=== PATIENT | male | born 1990 | race Asian ===

== ENCOUNTER 2018-07-06 18:21 | Inpatient (IN) | payer BC ==
[~2018-07-06] VITALS: Ht 172.7 cm; Wt 82.1 kg
[2018-07-06] MEDS ORDERED: PLEASE ENTER ALLERGIES MC SCH (19:00)
[2018-07-06] MEDS ORDERED: ONDANSETRON 2MG/ML, 2ML IVPush ONE (19:00)
[2018-07-06] MEDS ORDERED: MORPHINE SULFATE 4 MG/ML, 1ML IVPush PRN ×2 (19:00→22:30)
[2018-07-06] MEDS ORDERED: ONDANSETRON 2MG/ML, 2ML ONE (19:10)
[2018-07-06] MEDS ORDERED: MORPHINE SULFATE 4 MG/ML, 1ML ONE (19:11)
[2018-07-06 19:14] LABS: BASOPHILS # (AUTO) 0.01 x10^3/uL (0-0.1); BASOPHILS % (AUTO) 0 % (0-1); EOSINOPHILS % (AUTO) 0 % (1-7); LYMPHOCYTES # (AUTO) 0.45 x10^3/uL (1-3.4); LYMPHOCYTES % (AUTO) 3 % (22-44); MD NO; MEAN CORPUSCULAR HGB CONC 34.7 g/dL (33.2-36.2); MEAN CORPUSCULAR VOLUME 86.4 fL (81-97); MEAN PLATELET VOLUME 8.2 fL (7.4-10.4); MONOCYTES # (AUTO) 0.54 x10^3/uL (0.2-0.8); MONOCYTES % (AUTO) 3 % (2-9); NEUTROPHILS # (AUTO) 15.58 x10^3/uL (1.8-6.8); NEUTROPHILS % (AUTO) 94 % (42-75); PLATELET COUNT 207 x10^3/uL (130-400); RED CELL DISTRIBUTION WIDTH 12.6 % (9.4-14.8)
--- NOTE | 2018-07-06 19:20 | NUR ---
PT VOMITING BROWN LIQUID. FAMILY ASSISTING PT AT BS. RV'WD POC WITH HIM, COMFORT MEASURES PROVIDED.
[2018-07-06 19:24] LABS: ALANINE AMINOTRANSFERASE 140 U/L (12-78); ALBUMIN 4.8 g/dL (3.4-5.0); ANION GAP 9 mmol/L (5-15); CALCIUM 9.6 mg/dL (8.5-10.1); CHLORIDE 105 mmol/L (98-107); CREATININE 1.36 mg/dL (0.7-1.3)
[2018-07-06 19:26] LABS: ALKALINE PHOSPHATASE 85 U/L (45-117); BILIRUBIN,TOTAL 1.9 mg/dL (0.2-1.0); TOTAL PROTEIN 8.1 g/dL (6.4-8.2)
--- NOTE | 2018-07-06 19:29 | NUR ---
IV INSERTED, PT MEDICATED PER ORDERS. RV'WD POC WITH HIM. NOTIFIED PT ABOUT NEED FOR URINE SAMPLE. Addendum: 07/06/18 at 2 by HBENSON SPO2 90-91% ON RA AFTER MORPHINE. PT PLACED ON 1L O2 NC.
--- NOTE | 2018-07-06 19:52 | NUR ---
PT MUCH MORE COMFORTABLE, RESTING WITH EYES CLOSED AFTER PAIN MEDS. AWAKENS EASILY. INSTRUCTED ON CLEAN CATCH URINE SAMPLE.
--- NOTE | 2018-07-06 19:54 | NUR ---
PT AMBULATED TO BR WITHOUT DIFFICULTY.
--- NOTE | 2018-07-06 20:20 | NUR ---
PT VOMITING AGAIN. FAMILY ASSISTING PT. WILL NOTIFY ERP.
--- NOTE | 2018-07-06 20:28 | NUR ---
LUNCH RN: PT RESTING ON [facility] RA O2 SATS 88%, PT HAS TAKEN O2 OFF. THIS RN TRIED TO REPLACE IT HOWEVER THE PT REQUESTS THAT IT "BE TURNED DOWN BECAUSE IT'S TOO HIGH". CURRENTLY AT 2LPM. SATS INCREASED TO 95%. FAMILY AT BEDSIDE.
--- NOTE | 2018-07-06 20:32 | NUR ---
LUNCH RN: PT TO
[2018-07-06 20:34] LABS: MICROSCOPIC INDICATED
[2018-07-06 20:51] LABS: CULTURE INDICATED? NO
--- NOTE | 2018-07-06 20:55 | NUR ---
ERP AT BS FOR RE-EVAL.
[2018-07-06] MEDS ORDERED: SODIUM CHLORIDE 0.9% 1,000ML IVBOLUS ONE ×2 (21:00→21:30)
[2018-07-06] MEDS ORDERED: METOCLOPRAMIDE 5 MG/ML, 2ML IVPush ONE (21:00)
[2018-07-06] MEDS ORDERED: METOCLOPRAMIDE 5 MG/ML, 2ML ONE (21:05)
--- NOTE | 2018-07-06 21:27 | NUR ---
PT MEDICATED WITH REGLAN AND IV BOLUS INFUSING. STILL HAVING SOME NAUSEA. TO CT VIA GURNEY AT THIS TIME.
[2018-07-06] MEDS ORDERED: OMNIPAQUE 350 MG/ML, 100ML BOTTLE ONE (21:41)
--- NOTE | 2018-07-06 22:09 | NUR ---
ERP WAS IN FOR RECHECK. PT AND FAMILY UNDERSTAND PLAN FOR ADMISSION. PT RESTING AT THIS TIME, AWAKENS EASILY.
--- NOTE | 2018-07-06 22:23 | NUR ---
HOSPITALIST AT BS. PT A&OX4, ANSWERING QUESTIONS.
[2018-07-06] MEDS ORDERED: ONDANSETRON 2MG/ML, 2ML IVPush PRN ×2 (22:30→23:00)
[2018-07-06] MEDS ORDERED: SODIUM CHLORIDE 0.9% 1,000 ML IV SCH (22:38)
[2018-07-06] MEDS ORDERED: hydrALAzine 20 MG/ML, 1ML IVPush PRN (23:00)
[2018-07-06] MEDS ORDERED: ENOXAPARIN 40 MG/0.4 ML SQ SCH (23:00)
[2018-07-06 23:06] VITALS: BP 139/83
[2018-07-07] MEDS: HEPARIN 5,000 UNITS/ML, 1ML SQ SCH ×2 (00:04→11:21)
[2018-07-07] MEDS: CEFTRIAXONE PMX 2GM/50ML 50 ML IV SCH (00:04)
[2018-07-07 00:53] VITALS: BP 126/71
[2018-07-07] MEDS: METRONIDAZOLE PMX 500MG/100ML 100 ML IV SCH ×3 (02:14→16:59)
[2018-07-07 05:07] LABS: BASOPHILS % (AUTO) 0 % (0-1); EOSINOPHILS % (AUTO) 0 % (1-7); LYMPHOCYTES % (AUTO) 4 % (22-44); MD NO; MEAN CORPUSCULAR HEMOGLOBIN 30.2 pg (27.5-34.5); MEAN CORPUSCULAR HGB CONC 34.7 g/dL (33.2-36.2); MEAN CORPUSCULAR VOLUME 87.2 fL (81-97); MEAN PLATELET VOLUME 8.4 fL (7.4-10.4); MONOCYTES # (AUTO) 1.06 x10^3/uL (0.2-0.8); MONOCYTES % (AUTO) 6 % (2-9); NEUTROPHILS # (AUTO) 14.91 x10^3/uL (1.8-6.8); NEUTROPHILS % (AUTO) 89 % (42-75); PLATELET COUNT 196 x10^3/uL (130-400); RED BLOOD COUNT 6.11 x10^6/uL (4.38-5.82); RED CELL DISTRIBUTION WIDTH 12.6 % (9.4-14.8)
[2018-07-07 05:19] LABS: CHLORIDE 109 mmol/L (98-107)
[2018-07-07 05:32] LABS: ALANINE AMINOTRANSFERASE 93 U/L (12-78); ALBUMIN 3.7 g/dL (3.4-5.0); ALKALINE PHOSPHATASE 66 U/L (45-117); ANION GAP 7 mmol/L (5-15); BILIRUBIN,TOTAL 1.3 mg/dL (0.2-1.0); CREATININE 0.83 mg/dL (0.7-1.3); TOTAL PROTEIN 6.7 g/dL (6.4-8.2)
[2018-07-07 07:25] VITALS: BP 118/75
[2018-07-07 08:06] LABS: INTERNATIONAL NORMALIZED RATIO 1.03 (0.93-1.1); PROTHROMBIN TIME 10.8 Seconds (9.6-11.5)
[2018-07-07] MEDS: POTASSIUM CHLORIDE 20 MEQ, MAGNESIUM SULFATE 1 GM, THIAMINE 200 MG, FOLIC ACID 1 MG, MV... IV SCH (08:53)
[2018-07-07] MEDS: morphine SULFATE 10 MG/ML, 1ML IVPush PRN ×2 (11:05→21:36)
[2018-07-07 14:00] VITALS: BP 116/76
[2018-07-07] MEDS ORDERED: OMNIPAQUE 350 MG/ML, 75ML BOTTLE ONE (14:02)
[2018-07-07 18:45] VITALS: BP 129/78
[2018-07-07] MEDS: SODIUM CHLORIDE 0.9% 1,000 ML IV SCH (22:38)
[2018-07-08] MEDS: CEFTRIAXONE PMX 2GM/50ML 50 ML IV SCH ×2 (00:04→23:52)
[2018-07-08 00:57] VITALS: BP 110/61
[2018-07-08] MEDS: METRONIDAZOLE PMX 500MG/100ML 100 ML IV SCH ×3 (01:04→21:51)
[2018-07-08] MEDS: SODIUM CHLORIDE 0.9% 1,000 ML IV SCH ×4 (04:21→22:00)
[2018-07-08] MEDS: HEPARIN 5,000 UNITS/ML, 1ML SQ SCH ×2 (05:29→17:30)
[2018-07-08 05:55] LABS: MEAN CORPUSCULAR HEMOGLOBIN 30.3 pg (27.5-34.5); MEAN CORPUSCULAR HGB CONC 34.7 g/dL (33.2-36.2); MEAN CORPUSCULAR VOLUME 87.5 fL (81-97); MEAN PLATELET VOLUME 8.6 fL (7.4-10.4); PLATELET COUNT 162 x10^3/uL (130-400); RED CELL DISTRIBUTION WIDTH 13.1 % (9.4-14.8)
[2018-07-08 05:56] LABS: CHLORIDE 110 mmol/L (98-107)
[2018-07-08 06:03] LABS: ALANINE AMINOTRANSFERASE 51 U/L (12-78); ALKALINE PHOSPHATASE 58 U/L (45-117); ANION GAP 6 mmol/L (5-15); BILIRUBIN,TOTAL 1.3 mg/dL (0.2-1.0); CREATININE 1.05 mg/dL (0.7-1.3); TOTAL PROTEIN 6.3 g/dL (6.4-8.2)
[2018-07-08 07:03] VITALS: BP 124/69
[2018-07-08 07:24] LABS: MD YES
[2018-07-08 07:26] LABS: BANDS%(MANUAL) 6 % (0-7); LYMPHS% (MANUAL) 3 % (22-44); MONOS% (MANUAL) 6 % (2-9); SEGS% (MANUAL) 85 % (42-75)
[2018-07-08 07:27] LABS: <PLATELET ESTIMATE> ADEQUATE; <PLT MORPHOLOGY> NORMAL PLT MORPH; <RBC MORPHOLOGY> NORMAL
[2018-07-08] MEDS: POTASSIUM CHLORIDE 20 MEQ, MAGNESIUM SULFATE 1 GM, THIAMINE 200 MG, FOLIC ACID 1 MG, MV... IV SCH (08:06)
[2018-07-08] MEDS ORDERED: THIAMINE 100MG TABLET PO SCH (11:00)
[2018-07-08] MEDS ORDERED: FOLIC ACID 1 MG TABLET PO SCH (11:00)
[2018-07-08 14:15] VITALS: BP 132/77
[2018-07-08] MEDS ORDERED: BUPIVACAINE/PF-EPI 0.5% 1:200K ONE (15:09)
[2018-07-08] MEDS ORDERED: OMNIPAQUE 350 MG/ML, 50 ML BOTTLE ONE (15:45)
[2018-07-08] MEDS ORDERED: BUPIVACAINE/EPI 0.5% 1:200K ONE (17:01)
[2018-07-08] MEDS ORDERED: MIDAZOLAM 1 MG/ML, 2ML ONE (17:13)
[2018-07-08] MEDS ORDERED: CEFOTETAN 2 GM ONE (17:37)
[2018-07-08] MEDS ORDERED: BUPIVACAINE/PF-EPI 0.5% 1:200K INFIL ONE (18:05)
[2018-07-08] MEDS ORDERED: FENTANYL PF 250 MCG/5ML ONE (18:06)
[2018-07-08] MEDS ORDERED: DEXAMETHASONE 4 MG/ML, 1ML ONE (18:11)
[2018-07-08] MEDS ORDERED: NEOSTIGMINE 1 MG/ML, 10ML ONE (18:11)
[2018-07-08] MEDS ORDERED: CEFAZOLIN 1,000 MG ONE (18:11)
[2018-07-08] MEDS ORDERED: PROPOFOL 10 MG/ML, 20ML ONE (18:11)
[2018-07-08] MEDS ORDERED: SUCCINYLCHOLINE 20 MG/ML, 10ML ONE (18:11)
[2018-07-08] MEDS ORDERED: ROCURONIUM 10MG/ML,5ML ONE (18:11)
[2018-07-08] MEDS ORDERED: GLYCOPYRROLATE 0.2MG/1ML, 5ML ONE (18:11)
[2018-07-08] MEDS ORDERED: ONDANSETRON 2MG/ML, 2ML ONE (18:11)
[2018-07-08] MEDS ORDERED: OXYcodone 5 MG/5 ML ORAL.SOL UDC PO PRN (18:30)
[2018-07-08] MEDS ORDERED: MEPERIDINE/PF 25MG/0.5ML IVPush PRN (18:30)
[2018-07-08] MEDS ORDERED: hydrALAzine 20 MG/ML, 1ML IV PRN (18:30)
[2018-07-08] MEDS ORDERED: DIAZEPAM 5 MG/ML, 2ML IVPush PRN (18:30)
[2018-07-08] MEDS ORDERED: HYDROmorphone 2 MG/ML, 1ML IVPush PRN (18:30)
[2018-07-08] MEDS ORDERED: ACETAMINOPHEN 325 MG TABLET PO PRN (18:30)
[2018-07-08] MEDS ORDERED: LABETALOL 5MG/ML, 20ML IV PRN (18:30)
[2018-07-08] MEDS ORDERED: ALBUTEROL SULFATE 2.5 MG/3 ML NPPB PRN (18:30)
[2018-07-08] MEDS ORDERED: KETOROLAC 30 MG/1 ML IV PRN (18:30)
[2018-07-08] MEDS ORDERED: PROMETHAZINE 25 MG/ML, 1ML IV PRN (18:30)
[2018-07-08] MEDS ORDERED: FENTANYL PF 100 MCG/2ML IV PRN (18:30)
[2018-07-08] MEDS ORDERED: OXYcodone 5 MG/5 ML ORAL.SOL UDC ONE (18:57)
[2018-07-08] MEDS ORDERED: KETOROLAC 30 MG/1 ML ONE (18:57)
[2018-07-08] MEDS ORDERED: MORPHINE SULFATE 4 MG/ML, 1ML IV PRN (20:00)
[2018-07-08] MEDS ORDERED: ONDANSETRON 2MG/ML, 2ML IV PRN (20:00)
[2018-07-08 21:23] VITALS: BP 119/70
[2018-07-09 02:24] VITALS: BP 110/74
[2018-07-09] MEDS: SODIUM CHLORIDE 0.9% 1,000 ML IV SCH (03:43)
[2018-07-09 05:50] LABS: BASOPHILS # (AUTO) 0.03 x10^3/uL (0-0.1); BASOPHILS % (AUTO) 0 % (0-1); EOSINOPHILS % (AUTO) 0 % (1-7); LYMPHOCYTES # (AUTO) 0.83 x10^3/uL (1-3.4); LYMPHOCYTES % (AUTO) 7 % (22-44); MD NO; MEAN CORPUSCULAR HEMOGLOBIN 30.3 pg (27.5-34.5); MEAN CORPUSCULAR HGB CONC 34.7 g/dL (33.2-36.2); MEAN CORPUSCULAR VOLUME 87.2 fL (81-97); MEAN PLATELET VOLUME 8.1 fL (7.4-10.4); MONOCYTES % (AUTO) 9 % (2-9); NEUTROPHILS % (AUTO) 85 % (42-75); PLATELET COUNT 157 x10^3/uL (130-400); RED BLOOD COUNT 4.98 x10^6/uL (4.38-5.82)
[2018-07-09] MEDS: METRONIDAZOLE PMX 500MG/100ML 100 ML IV SCH (05:57)
[2018-07-09 06:02] LABS: ALBUMIN 2.6 g/dL (3.4-5.0); ANION GAP 3 mmol/L (5-15); CALCIUM 7.3 mg/dL (8.5-10.1); CHLORIDE 109 mmol/L (98-107)
[2018-07-09] MEDS: HEPARIN 5,000 UNITS/ML, 1ML SQ SCH ×2 (06:02→18:00)
[2018-07-09] MEDS: OXYcodone/APAP 5/325MG TABLET PO PRN ×3 (06:05→20:21)
[2018-07-09 06:06] LABS: ALANINE AMINOTRANSFERASE 61 U/L (12-78); ALKALINE PHOSPHATASE 51 U/L (45-117); TOTAL PROTEIN 5.7 g/dL (6.4-8.2)
[2018-07-09 06:47] VITALS: BP 114/69
[2018-07-09] MEDS: POTASSIUM CHLORIDE 20 MEQ, MAGNESIUM SULFATE 1 GM, THIAMINE 200 MG, FOLIC ACID 1 MG, MV... IV SCH (09:00)
[2018-07-09] MEDS: FOLIC ACID 1 MG TABLET PO SCH (11:53)
[2018-07-09] MEDS: THIAMINE 100MG TABLET PO SCH (11:53)
[2018-07-09 14:09] VITALS: BP 114/65
[2018-07-09 20:01] VITALS: BP 120/75
[2018-07-10 03:00] VITALS: BP 121/72
[2018-07-10] MEDS: HEPARIN 5,000 UNITS/ML, 1ML SQ SCH ×2 (05:53→17:33)
[2018-07-10 06:38] LABS: MEAN CORPUSCULAR HEMOGLOBIN 30.2 pg (27.5-34.5); MEAN CORPUSCULAR HGB CONC 34.5 g/dL (33.2-36.2); MEAN CORPUSCULAR VOLUME 87.5 fL (81-97); MEAN PLATELET VOLUME 8.4 fL (7.4-10.4); PLATELET COUNT 183 x10^3/uL (130-400); RED BLOOD COUNT 4.96 x10^6/uL (4.38-5.82); RED CELL DISTRIBUTION WIDTH 12.4 % (9.4-14.8)
[2018-07-10 06:50] LABS: ALBUMIN 2.7 g/dL (3.4-5.0); ANION GAP 6 mmol/L (5-15); CALCIUM 7.6 mg/dL (8.5-10.1); CHLORIDE 104 mmol/L (98-107)
[2018-07-10 06:54] LABS: ALANINE AMINOTRANSFERASE 52 U/L (12-78); ALKALINE PHOSPHATASE 60 U/L (45-117); BILIRUBIN,TOTAL 0.9 mg/dL (0.2-1.0); CREATININE 0.76 mg/dL (0.7-1.3); TOTAL PROTEIN 6.1 g/dL (6.4-8.2)
[2018-07-10 07:08] LABS: MD YES
[2018-07-10 07:11] LABS: BAND#(MANUAL) 0.88 x10^3/uL; BANDS%(MANUAL) 7 % (0-7); LYMPH#(MANUAL) 0.63 x10^3/uL (1-3.4); LYMPHS% (MANUAL) 5 % (22-44); MONOS% (MANUAL) 12 % (2-9); REACTIVE LYMPHS # (MANUAL) 0.13 x10^3/uL (0-0); REACTIVE LYMPHS % (MANUAL) 1 % (0-0); SEG#(MANUAL) 9.38 x10^3/uL (1.8-6.8); SEGS% (MANUAL) 75 % (42-75)
[2018-07-10 07:12] LABS: <PLATELET ESTIMATE> ADEQUATE; <PLT MORPHOLOGY> NORMAL PLT MORPH; <RBC MORPHOLOGY> NORMAL
[2018-07-10 07:25] VITALS: BP 130/74
[2018-07-10] MEDS: OXYcodone/APAP 5/325MG TABLET PO PRN ×2 (07:43→17:41)
[2018-07-10] MEDS: FOLIC ACID 1 MG TABLET PO SCH (07:44)
[2018-07-10] MEDS: THIAMINE 100MG TABLET PO SCH (07:44)
[2018-07-10] MEDS ORDERED: SODIUM PHOSPHATE 30 MMOL in SODIUM CHLORIDE 0.9% 500 ML IV ONE (08:00)
[2018-07-10] MEDS ORDERED: SODIUM PHOSPHATE 4 MEQ/ML IV SCH (08:00)
[2018-07-10 12:52] VITALS: BP 127/74
[2018-07-10 21:07] VITALS: BP 112/65
[2018-07-11] MEDS: OXYcodone/APAP 5/325MG TABLET PO PRN (01:31)
[2018-07-11 02:21] VITALS: BP 112/70
[2018-07-11] MEDS: HEPARIN 5,000 UNITS/ML, 1ML SQ SCH ×2 (05:08→06:13)
[2018-07-11 06:38] VITALS: BP 110/69
[2018-07-11] MEDS ORDERED: FOLI-17 PO (06:44)
[2018-07-11] MEDS ORDERED: THIA100T67 PO (06:44)
[2018-07-11] MEDS: FOLIC ACID 1 MG TABLET PO SCH (09:42)
[2018-07-11] MEDS: THIAMINE 100MG TABLET PO SCH (09:42)
== END 2018-07-11 11:50 | disposition home or self-care (01) | DRG 417 ==
LOC: ED 20:46 → EDIP 22:12 → 3NE 22:48
PROVIDERS: ADMIT Family Medicine; ATTEND Family Medicine
PROC: BF101ZZ Fluoroscopy of Bile Ducts using Low Osmolar Contrast (ICD-10-PCS; 2018-07-08)
PROC: 0FT44ZZ Resection of Gallbladder, Percutaneous Endoscopic Approach (ICD-10-PCS; principal; 2018-07-08 16:30)
DX: K80.10 Calculus of gallbladder with chronic cholecystitis without obstruction (principal); K85.10 Biliary acute pancreatitis without necrosis or infection; E86.0 Dehydration; F10.10 Alcohol abuse, uncomplicated; F17.210 Nicotine dependence, cigarettes, uncomplicated; Z79.01 Long term (current) use of anticoagulants
CPT/HCPCS: 36415; 74300; 84145; 96361; 99291; J3490; 71045; 71260; 74177; 74181; 76700; 80053; 80307; 81001; 83615; 83690; 83735; 84100; 84478; 85025; 85610; 85730; 86480; 87040; 88304; 93005; 96374; 96375; C1729; G0378; J0690; J0696; J1100; J1644; J1885; J2250; J2405; J2704; J2710; J3010; J3411; J3475; J3480; Q9967; J0330; J2270; J2765; J7030; J7040

== ENCOUNTER → 2018-09-01 | Outpatient (CLI) | payer BC ==
[~2018-09-01] MED LIST: FOLI-17 PO; OMNIPAQUE 350 MG/ML, 75ML BOTTLE ONE; THIA100T67 PO
== END | disposition home or self-care (01) ==
LOC: CFH 09:17
PROVIDERS: ATTEND Internal Medicine
DX: R91.8 Other nonspecific abnormal finding of lung field (principal); R59.0 Localized enlarged lymph nodes; K86.3 Pseudocyst of pancreas; K76.0 Fatty (change of) liver, not elsewhere classified; Z90.49 Acquired absence of other specified parts of digestive tract
CPT/HCPCS: 71260; Q9967